=== PATIENT | female | born 1975 | race African-American/Black ===

== ENCOUNTER 2018-06-21 15:15 | Emergency (ER) | payer OTHER ==
[~2018-06-21] VITALS: Ht 157.5 cm; Wt 79.4 kg
[2018-06-21 15:23] VITALS: Ht 157.5 cm; Wt 79.4 kg
[2018-06-21 16:18] VITALS: BP 121/67
== END 2018-06-21 16:18 | disposition home or self-care (01) ==
LOC: ED 15:15
DX: S63.613A Unspecified sprain of left middle finger, initial encounter (principal); E03.9 Hypothyroidism, unspecified; Z97.10 Presence of artificial limb (complete) (partial), unspecified; W22.8XXA Striking against or struck by other objects, initial encounter; Y93.89 Activity, other specified; Y92.89 Other specified places as the place of occurrence of the external cause; Y99.8 Other external cause status
CPT/HCPCS: Q0092

== ENCOUNTER 2018-11-27 04:23 | Emergency (ER) | payer OTHER ==
[~2018-11-27] VITALS: Ht 157.5 cm; Wt 79.8 kg
[2018-11-27 04:41] VITALS: Ht 157.5 cm; Wt 79.8 kg
[2018-11-27 07:23] VITALS: BP 129/80
== END 2018-11-27 07:23 | disposition home or self-care (01) ==
LOC: ED 04:23
DX: S93.401A Sprain of unspecified ligament of right ankle, initial encounter (principal); S83.92XA Sprain of unspecified site of left knee, initial encounter; E03.9 Hypothyroidism, unspecified; Z90.710 Acquired absence of both cervix and uterus; W18.39XA Other fall on same level, initial encounter; Y93.89 Activity, other specified; Y92.89 Other specified places as the place of occurrence of the external cause; Y99.8 Other external cause status
CPT/HCPCS: 90715; J1885

== ENCOUNTER 2019-02-15 05:50 | Emergency (ER) | payer OTHER ==
[~2019-02-15] VITALS: Ht 157.5 cm; Wt 79.4 kg
[2019-02-15 06:02] VITALS: Ht 157.5 cm; Wt 79.4 kg
[2019-02-15 06:48] LABS: BASOPHIL % 1.1 % (0-2); PLATELET COUNT 195 x10^3mcL (130-400); RED CELL DISTRIBUTION WIDTH 12.9 % (11.5-14.5)
[2019-02-15 06:56] LABS: CALCIUM 8.4 mg/dL (8.5-10.1); CARBON DIOXIDE 30.5 mmol/L (21-32); CHLORIDE SERUM 106 mmol/L (98-107); GFR1 > 60 mL/min; GLUCOSE SERUM 98 mg/dL (74-106); POTASSIUM SERUM 3.9 mmol/L (3.5-5.1); SODIUM SERUM 141 mmol/L (136-145)
[2019-02-15 07:01] LABS: ALBUMIN 3.8 g/dL (3.4-5.0); ALKALINE PHOSPHATASE 61 U/L (46-116); ALT/SGPT 31 U/L (14-59); AMYLASE 65 U/L (25-115); AST/SGOT 12 U/L (15-37); BILIRUBIN TOTAL 0.43 mg/dL (0.20-1.00); LIPASE 174 IU/L (73-393); TOTAL PROTEIN, SERUM 7.4 g/dL (6.4-8.2)
[2019-02-15 08:17] VITALS: BP 115/72
== END 2019-02-15 08:17 | disposition home or self-care (01) ==
LOC: ED 05:50
PROVIDERS: Specialist
DX: R10.11 Right upper quadrant pain (principal); R10.13 Epigastric pain; E03.9 Hypothyroidism, unspecified; G43.909 Migraine, unspecified, not intractable, without status migrainosus; Z90.710 Acquired absence of both cervix and uterus
CPT/HCPCS: 36415; Q0092

== ENCOUNTER 2019-03-24 04:06 | Emergency (ER) | payer OTHER ==
[~2019-03-24] VITALS: Ht 157.5 cm; Wt 78.6 kg
[2019-03-24 04:19] VITALS: BP 113/93; Ht 157.5 cm; Wt 78.6 kg
== END 2019-03-24 05:02 | disposition home or self-care (01) ==
LOC: ED 04:06
DX: S16.1XXA Strain of muscle, fascia and tendon at neck level, initial encounter (principal); S39.012A Strain of muscle, fascia and tendon of lower back, initial encounter; G43.909 Migraine, unspecified, not intractable, without status migrainosus; K21.9 Gastro-esophageal reflux disease without esophagitis; E03.9 Hypothyroidism, unspecified; Z90.710 Acquired absence of both cervix and uterus; Z98.890 Other specified postprocedural states; V43.62XA Car passenger injured in collision with other type car in traffic accident, initial encounter; Y93.89 Activity, other specified; Y92.488 Other paved roadways as the place of occurrence of the external cause; Y99.8 Other external cause status

== ENCOUNTER 2019-07-21 08:51 | Emergency (ER) | payer OTHER ==
[~2019-07-21] VITALS: Ht 157.5 cm; Wt 79.8 kg
[2019-07-21 10:49] LABS: BASOPHIL % 0.5 % (0-2); PLATELET COUNT 171 x10^3mcL (130-400); RED CELL DISTRIBUTION WIDTH 12.8 % (11.5-14.5)
[2019-07-21 10:55] LABS: CALCIUM 8.3 mg/dL (8.5-10.1); CARBON DIOXIDE 28.9 mmol/L (21-32); CHLORIDE SERUM 109 mmol/L (98-107); CREATININE SERUM 0.9 mg/dL (0.6-1.0); GFR1 > 60 mL/min; GLUCOSE SERUM 101 mg/dL (74-106); POTASSIUM SERUM 4.1 mmol/L (3.5-5.1); SODIUM SERUM 143 mmol/L (136-145)
[2019-07-21 10:59] LABS: ALBUMIN 3.4 g/dL (3.4-5.0); ALKALINE PHOSPHATASE 73 U/L (46-116); ALT/SGPT 36 U/L (14-59); AST/SGOT 14 U/L (15-37); BILIRUBIN TOTAL 0.9 mg/dL (0.20-1.00); TOTAL PROTEIN, SERUM 7.3 g/dL (6.4-8.2)
[2019-07-21 13:58] VITALS: BP 114/78
== END 2019-07-21 14:06 | disposition home or self-care (01) ==
LOC: ED 08:51
PROVIDERS: Emergency Medicine
DX: G43.909 Migraine, unspecified, not intractable, without status migrainosus (principal); R07.89 Other chest pain; E03.9 Hypothyroidism, unspecified; E78.00 Pure hypercholesterolemia, unspecified; Z90.710 Acquired absence of both cervix and uterus
CPT/HCPCS: J1885; J2765

== ENCOUNTER 2019-11-04 03:49 | Emergency (ER) | payer OTHER ==
[~2019-11-04] VITALS: Ht 157.5 cm; Wt 80.1 kg
[2019-11-04 03:56] VITALS: Ht 157.5 cm; Wt 80.1 kg
[2019-11-04 06:44] VITALS: BP 117/87
== END 2019-11-04 06:44 | disposition home or self-care (01) ==
LOC: ED 03:49
DX: H10.89 Other conjunctivitis (principal); G43.909 Migraine, unspecified, not intractable, without status migrainosus; Z90.710 Acquired absence of both cervix and uterus

== ENCOUNTER 2020-07-04 21:41 | Emergency (ER) | payer OTHER ==
[~2020-07-04] VITALS: Ht 160 cm; Wt 77.1 kg
[2020-07-04 21:46] VITALS: Ht 160 cm; Wt 77.1 kg
[2020-07-04 23:20] LABS: microscopic required? NO
[2020-07-04 23:46] LABS: CALCIUM 8.2 mg/dL (8.5-10.1); CARBON DIOXIDE 29.8 mmol/L (21-32); CHLORIDE SERUM 103 mmol/L (98-107); CREATININE SERUM 0.7 mg/dL (0.6-1.0); GFR1 > 60 mL/min; GLUCOSE SERUM 92 mg/dL (74-106); POTASSIUM SERUM 3.4 mmol/L (3.5-5.1); SODIUM SERUM 137 mmol/L (136-145)
[2020-07-04 23:50] LABS: ALKALINE PHOSPHATASE 49 U/L (46-116); ALT/SGPT 32 U/L (14-59); AST/SGOT 20 U/L (15-37); BILIRUBIN TOTAL 0.9 mg/dL (0.20-1.00); CHOLESTEROL 191 mg/dL (<200); LIPASE 141 IU/L (73-393); PLATELET COUNT 190 x10^3mcL (130-400); RED CELL DISTRIBUTION WIDTH 12.9 % (11.5-14.5); TOTAL PROTEIN, SERUM 6.7 g/dL (6.4-8.2); TRIGLYCERIDES 95 mg/dL (<150)
[2020-07-04 23:52] LABS: ALBUMIN 3.3 g/dL (3.4-5.0); HDL CHOLESTEROL 64 mg/dL (40-60)
[2020-07-05 00:10] LABS: UA SPECIFIC GRAVITY >=1.030 (1.005-1.035); urine erythrocyte NEGATIVE (NEGATIVE)
[2020-07-05 00:50] VITALS: BP 115/67
[2020-07-05 00:54] LABS: AMPHETAMINE QUAL UR POSITIVE (See below)
== END 2020-07-05 00:50 | disposition home or self-care (01) ==
LOC: ED 21:41
PROVIDERS: Specialist
DX: K59.00 Constipation, unspecified (principal); E78.00 Pure hypercholesterolemia, unspecified; G43.909 Migraine, unspecified, not intractable, without status migrainosus; Z90.710 Acquired absence of both cervix and uterus
CPT/HCPCS: J1885; J7030

== ENCOUNTER 2020-10-14 12:14 | Emergency (ER) | payer OTHER, SELFPAY ==
[~2020-10-14] VITALS: Ht 154.9 cm; Wt 72.6 kg
[2020-10-14 12:17] VITALS: BP 123/90; Ht 154.9 cm; Wt 72.6 kg
== END 2020-10-14 14:02 | disposition home or self-care (01) ==
LOC: ED 12:14
DX: U07.1 COVID-19 (principal); G35 Multiple sclerosis; E03.9 Hypothyroidism, unspecified; G43.909 Migraine, unspecified, not intractable, without status migrainosus; E78.00 Pure hypercholesterolemia, unspecified; Z90.710 Acquired absence of both cervix and uterus; Z98.890 Other specified postprocedural states; Z98.82 Breast implant status
CPT/HCPCS: U0003